=== PATIENT | female | born 2005 | race African-American/Black ===

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

== ENCOUNTER 2025-05-06 20:39 | Emergency (ER) | payer SELFPAY ==
[2025-05-06 21:00] VITALS: BP 127/73; PULSE 94; RESP 20; TEMP 37.1; O2SAT 98; BMI 22.3
[2025-05-06 21:19] LABS: MANUAL DIFF FLAG NO
[2025-05-06 21:20] LABS: Hematocrit 39.3 % (37.0-47.0); Hemoglobin 13.0 g/dl (12.0-16.0); Imm Gran Abs Auto 0.02 X10*3/uL (0.00-0.03); Imm Gran Pct Auto 0.2 % (0.0-0.4); Lymphocytes Absolute Auto 2.2 X10*3/uL (1.2-4.9); Mean Corpuscular HGB Conc 33.1 g/dl (31.0-35.0); Mean Corpuscular Hemoglobin 29.8 pg (27.0-33.0); Mean Corpuscular Volume 90.1 fL (80.0-98.0); NRBC Abs Auto 0.000 X10*3/uL (0.0-0.012); NRBC Pct Auto 0.0 /100WBC (0.0-0.2); Platelet Count 267 X10*3/uL (160-400); Red Blood Count 4.36 X10*6/uL (4.20-5.50); White Blood Count 8.8 X10*3/uL (4.8-10.8)
[2025-05-06 21:36] LABS: Alanine Aminotransferase 29 U/L (0-31); Albumin Level 4.3 g/dL (3.5-5.0); Alkaline Phosphatase 78 U/L (39-117); Anion Gap 14 (12-20); Aspartate Amino Transferase 29 U/L (5-31); Blood Urea Nitrogen 8 mg/dL (9-16); Calcium 9.1 mg/dL (8.4-10.2); Carbon Dioxide 22 mmol/L (22-29); Chloride 109 mmol/L (96-108); Creatinine Clr Calc Pharmacy 103.3; Estimated Glomerular Filt Rate > 60; Potassium 3.7 mmol/L (3.3-5.1); Sodium 141 mmol/L (135-145); Total Protein 7.9 g/dL (6.5-8.0)
--- NOTE | 2025-05-06 21:53 | ED.GENADULT ---
HPI - General Adult General Chief complaint: General Medical Stated complaint: vaginal bleeding Time Seen by Provider: 05/06/25 21:53 Source: patient Mode of arrival: ambulatory Limitations: no limitations History of Present Illness ED Provider: Dr. Figueroa [facility] narrative: This is a 20-year-old female presented hospital today for evaluation of vaginal spotting. Patient had a miscarriage 6 weeks ago. Patient stated that she carried the product of conception to 9 weeks prior to miscarriage. She does denies any pelvic pain. However she is concerned about the smell of the discharge on vaginal spotting that is coming out. She stated it smells like feces. She used chat GPT and was worried that stool may be coming out. Related Data Home Medications ?Medication ?Instructions ?Recorded ?Confirmed norgestimate 0.25 mg-ethinyl 1 tab PO DAILY 03/24/24 03/24/24 estradiol 0.035 mg tablet Previous Rx's ?Medication ?Instructions ?Recorded doxycycline hyclate 100 mg capsule 100 mg PO BID 7 days #14 caps 05/06/25 metronidazole 500 mg tablet 500 mg PO BID 7 days #14 tabs 05/06/25 Allergies Allergy/AdvReac Type Severity Reaction Status Date / Time No Known Allergies Allergy Verified 05/06/25 21:07 Review of Systems Review of Systems: Pertinent review of systems as mentioned in HPI. All other system otherwise negative. [facility] Past Medical History [facility] Narrative: Medical history as mentioned in HPI Social History Social History Smoked in Last 30 Days: No Use of substances other than those prescribed or required for medical reasons: No Advance Directives: No Advance Directives Information Provided: Yes Patient : No Physical Exam ED Exam Exam: General: Pleasant, no distress, interacting appropriately Head: Normacephalic, atraumatic Gastrointestinal: Soft, non distended, non tender, non guarding Neurological: Awake and alert, no facial droop noted Skin: Warm and dry Psychiatric: Appropriate mood and thoughts Vital Signs: Vital Signs - 24 hr 05/06/25 21:00 05/06/25 22:43 Temperature 98.7 F 98.0 F Pulse Rate 94 74 Respiratory Rate 20 16 Blood Pressure 127/73 113/70 Pulse Oximetry 98 98 Oxygen Delivery Method Room Air Room Air BMI result Body Mass Index 22.3 Medications Administered Discontinued Medications Generic Name Dose Route Start Last Admin Trade Name Freq PRN Reason Stop Dose Admin Ceftriaxone Sodium 500 mg/ 0 mg 05/06/25 22:24 05/06/25 22:41 Lidocaine HCl 1 ml IM 05/06/25 22:25 350 kit ONCE ONE Administration Doxycycline Monohydrate 100 mg 05/06/25 22:24 05/06/25 22:41 Doxycycline Monohydrate 100 Mg Capsule PO 05/06/25 22:25 100 mg ONCE ONE Administration Metronidazole 500 mg 05/06/25 22:24 05/06/25 22:41 Metronidazole 500 Mg Tablet PO 05/06/25 22:25 500 mg ONCE ONE Administration Medical Decision Making Medical Decision Making [facility] Narrative: This is a 20-year-old female presented hospital today for foul-smelling vaginal spotting. Patient's hCG is negative. I have low suspicion for ectopic . I do not see the need to perform a pelvic ultrasound on patient. As patient is not at this time. Patient stated that she has recently sexually active again. She had sex recently. Discussed with the patient whether she will like to be treated for STDs. Patient is agreeable to this. Urine will be sent for chlamydia gonorrhea testing. We will send off a wet prep for the patient as well. We will cover patient for bacterial vaginosis and STDs. IM ceftriaxone, p.o. Flagyl, p.o. doxycycline will be given to the patient. I did offer pelvic exam for the patient however patient defers. The patient does not appear to be acutely ill my examination. Hemoglobin stable. Patient will be discharged. referral to OBGYN will be provided the patient. Differential Diagnosis Differential Diagnoses: The differential diagnosis associated with the presentation includes Vaginal bleeding, STD Lab Data [facility] Lab Attestation statement: I reviewed the patient's lab results. 05/06/25 21:14 05/06/25 21:14 Labs: Lab Results 05/06/25 05/06/25 Range/Units 21:14 23:03 WBC 8.8 (4.8-10.8) X10*3/uL RBC 4.36 (4.20-5.50) X10*6/uL Hgb 13.0 (12.0-16.0) g/dl Hct 39.3 (37.0-47.0) % MCV 90.1 (80.0-98.0) fL MCH 29.8 (27.0-33.0) pg MCHC 33.1 (31.0-35.0) g/dl RDW 13.5 (11.0-16.0) % Plt Count 267 D (160-400) X10*3/uL MPV 11.9 (9.4-12.3) fL Immature Gran % (Auto) 0.2 (0.0-0.4) % Neut % (Auto) 67.3 (45-73) % Lymph % (Auto) 24.7 (20-40) % [place] % (Auto) 6.7 (2-11) % Eos % (Auto) 0.5 (0-4) % Baso % (Auto) 0.6 (0-2) % Lymph # (Auto) 2.2 (1.2-4.9) X10*3/uL [place] # (Auto) 0.6 (0.1-1.2) X10*3/uL Eos # (Auto) 0.0 (0.0-0.4) X10*3/uL Baso # (Auto) 0.1 (0.0-0.2) X10*3/uL Abs Immat Gran (auto) 0.02 (0.00-0.03) X10*3/uL Absolute Neuts (auto) 5.9 (2.0-8.3) x10*3/uL Absolute Nucleated RBC 0.000 (0.0-0.012) X10*3/uL Nucleated RBC % (auto) 0.0 (0.0-0.2) /100WBC Sodium 141 (135-145) mmol/L Potassium 3.7 (3.3-5.1) mmol/L Chloride 109 H (96-108) mmol/L Carbon Dioxide 22 (22-29) mmol/L Anion Gap 14 (12-20) BUN 8 L (9-16) mg/dL Creatinine 0.75 (0.5-1.4) mg/dL Estim Creat Clear Calc 103.3 Estimated GFR > 60 Random Glucose 104 (60-115) mg/dL Calcium 9.1 (8.4-10.2) mg/dL Total Bilirubin 0.3 (0.0-1.0) mg/dL AST 29 (5-31) U/L ALT 29 (0-31) U/L Alkaline Phosphatase 78 (39-117) U/L Total Protein 7.9 (6.5-8.0) g/dL Albumin 4.3 (3.5-5.0) g/dL Beta HCG, Quant < 2 mIU/mL Urine Color Yellow Urine Appearance Turbid Urine pH 7.0 (5.0-9.0) Ur Specific [place] 1.020 (1.005-1.025) Urine Protein Negative (Neg-Trace) mg/dL Urine Glucose (UA) Negative (Negative) mg/dL Urine Ketones Negative (Negative) mg/dL Urine Blood Negative (Negative) Urine Nitrite Negative (Negative) Ur Leukocyte Esterase Negative (Negative) Discharge Plan Discharge Clinical Impression: Vaginal spotting, Foul smelling vaginal discharge Patient Disposition: Home, Self-Care Prescriptions: New metronidazole 500 mg tablet 500 mg PO BID 7 Days Qty: 14 0RF doxycycline hyclate 100 mg capsule 100 mg PO BID 7 Days Qty: 14 0RF No Action norgestimate-ethinyl estradiol 0.25-35 mg-mcg tablet 1 tab PO DAILY Referrals: [facility] [place] [Provider Group, Internal Medicine] [facility] [Provider Group] Print Language: Albanian
[2025-05-06] MEDS: cefTRIAXone sodium 500 MG, Lidocaine HCl 1 % MPF 1 ML IM (22:41)
[2025-05-06 22:43] VITALS: BP 113/70; PULSE 74; RESP 16; TEMP 36.7; O2SAT 98
--- NOTE | 2025-05-06 23:01 | PC.NURSE ---
D/C order in- waiting for UA results before discharging pt.
[2025-05-06 23:18] LABS: Appearance Urine Turbid; Glucose Urine UA Negative (Negative); PH 7.0 (5.0-9.0); Specific Gravity - Urine 1.020 (1.005-1.025)
[2025-05-06 23:57] VITALS: BP 113/70; PULSE 74; RESP 16; TEMP 36.7; O2SAT 98
[2025-05-07 10:34] LABS: CT PCR Urine NOT DETECTED (Not Detect.); NG PCR Urine NOT DETECTED (Not Detect.)
[2025-05-08 16:17] LABS: CT PCR Urine NOT DETECTED (Not Detect.); NG PCR Urine NOT DETECTED (Not Detect.)
== END 2025-05-06 23:57 | disposition home or self-care (01) ==
PROVIDERS: Emergency Provider Student in an Organized Health Care Education/Training Program
DX: N89.8 Other specified noninflammatory disorders of vagina (principal); R19.8 Other specified symptoms and signs involving the digestive system and abdomen
CPT/HCPCS: 36415; 80053; 81003; 84702; 85025; 87491; 87591; 96372; 99284; J0696; J2003

== ENCOUNTER 2025-05-13 11:49 | Emergency (ER) | payer SELFPAY ==
[2025-05-13 12:04] VITALS: BP 120/82; PULSE 73; RESP 18; TEMP 36.8; O2SAT 100; BMI 21.5
--- NOTE | 2025-05-13 12:18 | ED.GENADULT ---
HPI - General Adult General Chief complaint: Vaginal Bleeding Stated complaint: Vaginal Issues Time Seen by Provider: 05/13/25 12:36 Source: patient, RN notes reviewed and old records reviewed Mode of arrival: ambulatory Limitations: no limitations History of Present Illness ED Provider: WILLOW Leos HPI narrative: 20-year-old female without significant medical history presents to the ED due to concerns of strong, and pleasant vaginal odor over the last 2 weeks. Patient was seen in the department on 05/06 for same symptoms. Patient stated yesterday she noticed foul odor again and found a retained tampon in the vagina that she removed. Denies fevers, chills, abdominal pain, nausea, vomiting, urinary symptoms MD complaint: vaginal odor, retained tampon Related Data Home Medications ?Medication ?Instructions ?Recorded ?Confirmed norgestimate 0.25 mg-ethinyl 1 tab PO DAILY 03/24/24 03/24/24 estradiol 0.035 mg tablet Previous Rx's ?Medication ?Instructions ?Recorded doxycycline hyclate 100 mg capsule 100 mg PO BID 7 days #14 caps 05/06/25 metronidazole 500 mg tablet 500 mg PO BID 7 days #14 tabs 05/06/25 Allergies Allergy/AdvReac Type Severity Reaction Status Date / Time No Known Allergies Allergy Verified 05/13/25 12:07 Review of Systems Review of Systems: Yes all other systems are reviewed and are negative [facility] Past Medical History Attestation statement: The following information was validated with the patient. Source: old records reviewed and nursing notes reviewed Social History Social History Smoked in Last 30 Days: No Use of substances other than those prescribed or required for medical reasons: No Advance Directives: No Advance Directives Information Provided: Yes Physical Exam ED Vital Signs: Vital Signs - 24 hr 05/13/25 12:04 Temperature 98.3 F Pulse Rate 73 Respiratory Rate 18 Blood Pressure 120/82 Pulse Oximetry 100 Oxygen Delivery Method Room Air BMI result Body Mass Index 21.5 GENERAL APPEARANCE: ?AxOx4, generally well-appearing, no acute distress. HEENT: ?NC, AT. MMM. EOMI, clear conjunctiva, oropharynx clear. NECK: ?Supple without lymphadenopathy.? No stiffness or restricted ROM. HEART:? Normal rate and regular rhythm, normal S1/S2, no m/r/g LUNGS:? CTAB, moving air well. No crackles or wheezes are heard. ABDOMEN: ?Soft, nondistended, no rigidity, negative Ledezma's sign, no rebound tenderness, very mild discomfort when palpating the suprapubic region : external genitalia without lesions, abnormalities, vaginal canal without lesions, cervix without punctate pearce, small amount of dark red blood coming from cervical os, no increased vaginal discharge or white curd-like discharge noted. On bimanual exam negative chandelier sign, no abnormalities palpated, the uterus is soft, mobile. BACK: No CVAT, no obvious deformity. EXTREMITIES: ?Without cyanosis, clubbing or edema. NEUROLOGICAL: ?Grossly nonfocal. Alert and oriented, moving all 4 extremities. Observed to ambulate with normal gait. Skin: ?Warm and dry without any rash. Course Course Course Narrative: RME: 20 yold female presents to the ED for vaginal discharge or foul odor from vagina. patient had tampon in vagina for two weeks Medical Decision Making Medical Decision Making [facility] Narrative: 20-year-old female without significant medical history presents to the ED due to concerns of strong, and pleasant vaginal odor over the last 2 weeks. Patient was seen in the department on 05/06 for same symptoms. Patient stated yesterday she noticed foul odor again and found a retained tampon in the vagina that she removed. VS on initial observation - BP 120/82, pulse rate of 73, respiratory rate of 18, afebrile with oral temp of 98.3?, O2 saturation 100% on room air. On physical exam patient is very well-appearing, nontoxic appearing, in no acute distress, vaginal exam without any lesions, abnormalities externally, internal vaginal exam with appropriate cervix, negative chandelier sign, small amount of dark red blood visualized coming from cervical os. On chart review Patient was recently in the department approximately 7 days ago on 05/06/2025. Urine chlamydia was negative. No vaginal swabs were done however patient was treated symptomatically and was given IM injection of ceftriaxone, by the previous provider and was prescribed a course of Flagyl, doxycycline on discharge. Patient is currently finishing the course. Patient was concerned today as she found a retained tampon in her vagina yesterday that she was able to self extract digitally. Patient is afebrile today, no abdominal pain, negative chandelier sign- less likley PID. Swabs done today for chlamydia/ gonorrhea, vaginitis panel. Patient was already treated with appropriate antibiotic therapy, no indication for abx or increasing the duration of abx at this time. Patients vaginal bleeding most likely due to return of menstrual cycle after experiencing a miscarriage 6 weeks ago. Patient was given referrals for PCP during her last visit. I counseled patient to become established with PCP referrals given. I counseled patient on strict return precautions. Patient feels well enough to go home at this time, Is in agreement with the plan. Differential Diagnosis Differential Diagnoses: The differential diagnosis associated with the presentation includes PID STI Vaginitis retained tampon return of menses after miscarriage Admission/Observation Consideration of admission/observation: Escalation of care including admission/observation considered Lab Data Labs: Lab Results 05/13/25 05/13/25 Range/Units 13:02 14:09 Urine Color Yellow Urine Appearance Clear Urine pH 5.5 (5.0-9.0) Ur Specific [place] 1.020 (1.005-1.025) Urine Protein Negative (Neg-Trace) mg/dL Urine Glucose (UA) Negative (Negative) mg/dL Urine Ketones Negative (Negative) mg/dL Urine Blood Negative (Negative) Urine Nitrite Negative (Negative) Ur Leukocyte Esterase Small (1+) H (Negative) Urine RBC 0-2 (0-2) /HPF Urine WBC 0-5 (0-5) /HPF Ur Squamous Epith Cells 0-2 (0-2) /HPF Urine Bacteria None Seen (None Seen) Hyaline Casts 0-2 (0-2) /LPF Urine Test NEGATIVE (NEGATIVE) Chlam trachomat DNA PCR NOT DETECTED (Not Detect.) N.gonorrhoeae DNA (PCR) NOT DETECTED (Not Detect.) T. vaginalis (PCR) NOT DETECTED (Not Detect) Bact vaginosis (PCR) NEGATIVE (Negative) C. krusei/glabrata (PCR) NOT DETECTED (Not Detect) Emily group (PCR) NOT DETECTED (Not Detect) External Record Review External record reviewed: Inpatient record, Office record and Outpatient record Prescription Management I considered prescription management with: Antibiotic Patient already given IM ceftriaxone, is on p.o. metronidazole, doxycycline. No indication for any other antibiotics, or prolonged duration at this time. Chronic Conditions Patient?s care impacted by: Other ( No known medical history) Discharge Plan Discharge Clinical Impression: Vaginal bleeding, Vaginal odor Patient Disposition: Home, Self-Care Additional Instructions: You were evaluated in the emergency department for vaginal bleeding, vaginal odor. On physical exam you did not have any other retained products within the vagina, no lesions or abnormalities seen. Your urine does not have evidence of infection however we will be cultured and if a specific bacteria grows you will be called and is started on the appropriate antibiotic. your test was negative today. You were seen recently in the department and were medicated symptomatically At that time for chlamydia/ gonorrhea and bacterial vaginosis with an intramuscular injection of ceftriaxone, and were discharged with oral antibiotics including doxycycline and metronidazole. Your urine at that time was negative for chlamydia/gonorrhea. Swabs were taken today including chlamydia/gonorrhea, BV and yeast. You were already given antibiotics, no indication for antibiotics at this time. If your swabs were positive, we will call you and discuss increasing the length of your antibiotics. Your vaginal bleeding is most likely the return of your menstrual cycle after experiencing a miscarriage. Please call the primary care doctors that were given to you for referral at her last visit to become established with them. Please return to the emergency department if you experience abdominal pain, increased vaginal discharge, fevers over 100.4?, or any new/worsening / concerning symptoms. Prescriptions: No Action norgestimate-ethinyl estradiol 0.25-35 mg-mcg tablet 1 tab PO DAILY metronidazole 500 mg tablet 500 mg PO BID 7 Days Qty: 14 0RF doxycycline hyclate 100 mg capsule 100 mg PO BID 7 Days Qty: 14 0RF Interventions: ED Discharge Assessment Last Done: 05/13/25 14:25 Discharge Date/Time: 05/13/25 14:25 Print Language: French
[2025-05-13 13:13] LABS: UPreg QC Valid YES
[2025-05-13 13:14] LABS: Appearance Urine Clear; Glucose Urine UA Negative (Negative); PH 5.5 (5.0-9.0); Specific Gravity - Urine 1.020 (1.005-1.025); UMIC TRIGGER UACC YES
--- OUTSIDE RECORDS SUMMARY | 2025-05-13 13:20 | XMS_ITS | Clinical Summary ---
Author Organization [facility] Address [address] [place] [address] Phone Care Team Providers Care Foam Fabricator Name Role Phone Terrie Gil MD Primary Care Provider Allergies No known active allergies Medications etonogestrel-eluti ng contraceptive device (Nexplanon) 68 mg implant subdermal implant Inject 68 mg into the skin Once. 1 Active norgestimate-ethin yl estradioL (ORTHO-CYCLEN) 0.25-0.035 mg per tabletIndications: Excessive and frequent menstruation with irregular cycle Take 1 tablet by mouth 1 (one) time each day. 84 tablet 1 5 Active Active Problems Problem Noted Date Diagnosed Date Acne 03/28/2021 Immunizations Immunization Administration Dates Next Due DTP 07/21/2006,2005,2005 DTaP (Infanrix) 6wks to less than 7yo 06/07/2009 [id number] (Pentacel) 2mo to less than 5yo 07/21/2006,2005,2005,05/01 [id number] (Pediarix) 6 w ks to less than 7yo 2005 H1N1 Inj Preservative Free 06/07/2009,05/11/2009 HPV 9-valent (Gardisil) 9yo to less than 46yo 07/11/2017,03/07/2016 Hepatitis A Pediatric (Havri x; Vaqta) 12mo to less than 19yo 11/10/2009,12/21/2007 Hepatitis B Pediatric (Enger ix B; Recombivax HB) to less than 20 yo 2005,2005 Hib (HbOC) 07/21/2006, 6,2005,05/01 IPV Inactivated polio (Ipol) 6wks and older 06/07/2009,2005,2005 Influenza Quadrivalent, 0.5m l, preservative free (Fluarix; FluLaval; Fluzone) ages 6mo and older (Afluria) 3yo and older 07/05/2020 Influenza trivalent, 0.5mL, preservative free (Fluarix; FluLaval; Fluzone) ages 6mo and older (Afluria) 3 years and older 07/05/2020,07/11/2017,03/07/2016,06/14 Influenza trivalent, with pr eservative (Fluzone; Afluria) 6mo and older 07/28/2012 MMR, measles mumps and rubel la Live (Priorix; M-M-R II) 12mo and older 11/10/2009,02/03/2006 Meningococcal MCV4P 03/07/2016 Pneumococcal Conjugate Vacci ne, 7 Valent 07/21/2006,2005,2005,05/01 Pneumococcal conjugate 13 va lent (Prevnar 13, PCV13) 2mo and older 11/10/2009 Tdap Tetanus diptheria acell ular pertussis (Boostrix; Adacel) 7yo and older 03/07/2016 Varicella live (Varivax) 12m o and older 11/10/2009,02/03/2006 Surgical History Surgery Date Site/Laterality Comments OTHER SURGICAL HISTORY PROCEDURE: DENIES PREVIOUS SURGERY Medical History Medical History Date Comments Croup 04/06/07 x 2 DX:Croup Otitis media 04/20/08 x 2, 06 *2 DX:Otitis me faith Constipation 03/20/06 DX:Constipation; COMMENT: er visit Torticollis 05 DX:Torticollis Allergy to cats 10/30 DX:Allergy to ca ts; COMMENT: and dog 2 on rast Eczema DX:Eczema History of mononucleosis 02/02 DX:Hist ory of mononucleosis; COMMENT: IGG positive igm neg Pityriasis rosea 03/05 DX:Pityriasis r osea Seasonal allergies 06/07/2009 DX:Seasonal a llergies History of early menarche 05/2017 DX:His tory of early menarche Periumbilical abdominal pain 06/07/2014 DX: Periumbilical abdominal pain; COMMENT: 06/05: Neg celiac screen 07/07: seen by Dr. Manuel. Stool calandar, avoid milk, probiotics. Avoid greasy foods. KUB, h pylori breath test. Increase water. Sit on toilet twice daily at the same time. 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, whole milk Family History Medical History Relation Name Comments No Known Problems Brother Asthma Maternal Grandmother mside Allergies Mother Relation Name Status Comments Brother Alive Father Alive Rolando David 02-22-84, ?stomach problems, health and physical education teacher Maternal Grandfather Maternal Grandmother Alive Mother Alive Ruth Ann [facility] 09-10-81, outreach hospice case manager Paternal Grandfather Alive Paternal Grandmother Alive Sister Alive half sib andrew bee david 05-27-08, ?leg problem Social History Tobacco Use Types Packs/Day Years Used Date Smoking Tobacco: Never Smokeless Tobacco: Never Alcohol Use Standard Drinks/Week Comments Never 0 (1 standard drink = 0.6 oz pur e alcohol) Housing Instability Answer Date Recorde d Are you worried that in the next 2 months you may not have stable housing? Unable to respond 05/23/2024 Food Access & Nutrition Answer Date Rec orded Do you have access to a vari ety of food including fruits and vegetables? Unable to respond 05/23/2024 Health Literacy Answer Date Recorded How often do you need to hav e someone help you when you read instructions, pamphlets, or other written material from your doctor or pharmacy? Unable to respond 05/23/2024 Caregiver: How often do you need to have someone help you when you read instructions, pamphlets, or other written material from your doctor or pharmacy? Not on file 024 Financial Risk Answer Date Recorded How hard is it for you to pa y for the very basics like food, housing, medical care, and air conditioning / heating? Unable to respond 05/23/2024 Transportation Answer Date Recorded Has the lack of transportati on kept you from meetings, work, or from getting things needed for daily living? Unable to respond 05/23/2024 Has the lack of transportati on kept you from medical appointments or from getting medications? Unable to respond 05/23/2024 Social Isolation Answer Date Recorded How often do you feel lonely or isolated from those around you? Unable to respond 05/23/2024 Food Risk Answer Date Recorded Within the past 12 months we worried whether our food would run out before we got money to buy more. Unable to respond 024 Within the past 12 months th e food we bought just didn't last and we didn't have money to get more. Unable to respond 06/2023 Dependent Care Answer Date Recorded Do you need help finding or paying for care for your loved ones. For example, child adolescent psychiatrist or elderly care for an older adult? Unable to respond 05/23/2024 Education Answer Date Recorded Do you think completing more education or training, like finishing a GED, going to college, or learning a trade, would be helpful for you? Unable to respond 05/23/2024 Employment and Income Answer Date Recor ded During the last four weeks, have you been actively looking for work? No 05/23/2024 Living Situation Answer Date Recorded What is your living situation? Unrecognized valu e 05/23/2024 Comments Unknown Sex and Gender Information Value Date Recorded Sex Assigned at Not on file Legal Sex Female 5:02 AM EST Gender Identity Not on file Sexual Orientation Not on file Obstetrics History Last Filed Vital Signs Vital Sign Reading Time Taken Comments Blood Pressure 111/79 01/18/2025 10:44 AM EDT Pulse 69 01/18/2025 10:44 AM EDT Temperature 36.2 C (97.2 F) 01/18/2025 10:44 AM EDT Respiratory Rate - - Oxygen Saturation - - Inhaled Oxygen Concentration - - Weight 61.6 kg (135 lb 12.8 oz) 024 12:00 PM EST Height 162.6 cm (5' 4 ) 05/24/2024 12:0 0 PM EST Body Mass Index 23.31 05/24/2024 12:00 PM EST Plan of Treatment Upcoming Encounters Date Type Department Care Team (Late st Contact Info) Description 05/25/2025 10:00 AM EST Office Visit Adult Medicine - [place] [address] [place] [id number] Jong Yancey PA [address] [place] [address] Health Maintenance Due Date Last Done Comments Meningococcal B Vaccine (1 of 2 - Standard) 2021 HIV Screening 05/26/2022 Hepatitis C Screening 05/26/2022 COVID-19 Vaccine ( - season) 2025 Influenza Vaccine (#1) 2025 , 07/05/2020, 07/11/2017, Additional history exists Social Influencers of Health Screening 05/23/2025 05/23/2024 Annual Well Child Visit (3-21 years old) 05/24/2025 05/24/2024, 05/21/2023, 03/28/2021, Additional history exists Gonorrhea/Chlamydia Screening 05/24/2025 05/24/2024, 04/22/2023 DTaP,Tdap,and Td Vaccines (7 - Td or Tdap) 03/07/2026 03/07/2016, 06/07/2009, 07/21/2006, Additional history exists Cholesterol Screening (Lipid Panel) 05/24/2029 05/24/2024, 05/21/2023 RSV Immunization Adult Patients (1 - 1-dose 75+ series) 01/25/2080 Hepatitis B Vaccines Completed 2005, 2005, 2005 HIB Vaccines Completed 07/21/2006, 06/24, 2005, Additional history exists IPV Vaccines Completed 06/07/2009, 06/24, 2005, Additional history exists Hepatitis A Vaccines Completed 11/10/2009, 12/21/19 08 MMR Vaccines Completed 11/10/2009, 02/03/2006 Pneumococcal Vaccine: Pediatrics (0 to 5 Years) and At-Risk Patients (6 to 49 Years) Completed 11/10/2009, 07/21/2006, 2005, Additional history exists Varicella Vaccines Completed 11/10/2009, 02/03/2006 Meningococcal ACWY Vaccine Aged Out 03/07/2016 N o longer eligible based on patient's age to complete this topic HPV Vaccines Completed 07/11/2017, 03/07/2016 Depression Screening Completed 11/19/2024 RSV Immunization Patients Under 20 months Aged Out No longer eligible based on patient's age to complete this topic Procedures Procedure Name Priority Date/Time Associated Diagnosis Comments LIPID PANEL WITH REFLEX TO DIRECT LDL Routine 05/24/2024 12:45 PM EST Adult general medical examination CHLAMYDIA TRACHOMATIS AND NEISSERIA GONORRHOEAE PCR Routine 05/24/2024 12:45 PM EST Adult general medical examination from Last 3 Months or Most Recently Relevant to Health Maintenance Results * (ABNORMAL) Lipid panel with reflex to direct LDL (05/24/2024 12:45 PM EST) Cholesterol 190 0 - 200 mg/dL LAB CHEMISTRY METHOD 05/24/2024 3:31 PM [facility] Triglycerides 83 0 - 150 mg/dL LAB CHEMISTRY METHOD 05/24/2024 3:31 PM [facility] HDL 62 >=40 mg/dL LAB CHEMISTRY METHOD 05/24/2024 3:31 PM [facility] LDL Calculated 111(H) 0 - 100 mg/dL LAB CHEMISTRY METHOD 05/24/2024 3:31 PM [facility] VLDL Cholesterol Tyshawn 16.6 mg/dL LAB CHEMISTRY METHOD 05/24/2024 3:31 PM [facility] Non HDL Chol. (LDL+VLDL) 128 <145 mg/dL LAB CHEMISTRY METHOD 05/24/2024 3:31 PM [facility] Chol/HDL Ratio 3.1 0.0 - 4.4 LAB CHEMISTRY METHOD 05/24/2024 3:31 PM [facility] Blood Venous blood specimen / Unknown Venipuncture / Unknown 05/24/2024 12:45 PM EST 05/24/2024 12:45 PM EST Jong [facility] LAB BLOOD ORDERABLES Final Re sult [facility] [address] [place] [address], [place] [phone] * Chlamydia trachomatis and Neisseria gonorrhoeae molecular study (05/24/2024 12:45 PM EST) Neisseria gonorrhoeae PCR Negative Negative LAB MOLECULAR DIAGNOSTICS METHOD 05/24/2024 4:11 PM EST [facility] Chlamydia trachomatis PCR Negative Negative LAB MOLECULAR DIAGNOSTICS METHOD 05/24/2024 4:11 PM EST [facility] Swab Urine specimen from urethra / Unknown Non-blood Collection / Unknown 05/24/2024 12:45 PM EST 05/24/2024 12:45 PM EST [facility] MICROBIOLOGY - GENERAL OR DERABLES Final Result Performing Organization Address City/[facility]/ZIP Co de Phone Number [facility] [address] [place] [address], [place] [phone] from Last 3 Months or Most Recently Relevant to Health Maintenance Insurance MEDICAID - [place] Care Teams Foam Fabricator Relationship Specialty Start Date End Date Terrie Gil MD [address] [place] [id number] PCP - General 04/01/23
--- OUTSIDE RECORDS SUMMARY | 2025-05-13 13:20 | XMS_ITS ---
Author Name [facility] Organization Unknown Care Team Organization Name Specialty Phone Email Start Date End Da te [facility] BEN COLES Primary Care 04/30/2022 02/09/2024
[2025-05-13 13:35] LABS: UACC Culture Trigger YES
[2025-05-13 14:25] VITALS: BP 120/82; PULSE 73; RESP 18; TEMP 36.8; O2SAT 100
[2025-05-13 15:15] LABS: Bacterial Vaginosis PCR NEGATIVE (Negative); Candida Group PCR NOT DETECTED (Not Detect); Candida glab krusei PCR NOT DETECTED (Not Detect); Trichomonas vaginalis PCR NOT DETECTED (Not Detect)
[2025-05-13 15:44] LABS: CT PCR NOT DETECTED (Not Detect.); NG PCR NOT DETECTED (Not Detect.)
== END 2025-05-13 14:25 | disposition home or self-care (01) ==
PROVIDERS: Physician Assistant; Emergency Provider Emergency Medicine
DX: N93.9 Abnormal uterine and vaginal bleeding, unspecified (principal); Z20.2 Contact with and (suspected) exposure to infections with a predominantly sexual mode of transmission; Z51.81 Encounter for therapeutic drug level monitoring; Z79.899 Other long term (current) drug therapy
CPT/HCPCS: 81001; 81025; 81515; 87086; 87491; 87591; 99284